=== PATIENT | female | born 1965 | race Caucasian/White ===

== ENCOUNTER → 2017-06-09 | Day surgery (SDC) | payer MEDICARE, BC ==
[~2017-06-09] MED LIST: ATROPINE 1 MG/10 ML SYRINGE IV; BUPIVACAINE 0.75%/DEXT (SPINAL) 2 ML INJ; CEFAZOLIN 1 GM INJ; CEFAZOLIN 2 GM/50 ML (PMX) 50 ML IVPB; DEXAMETHASONE 4 MG/ML 1 ML INJ; DIPHENHYDRAMINE 50 MG INJ IV; EPHEDrine SULFATE 50 MG/5 ML SYG; EPHEDrine SULFATE 50 MG/5 ML SYG IV; FENTAnyl 50 MCG/ML VIAL; FENTAnyl 50 MCG/ML VIAL IV; GELATIN SIZE 100 SPONGE; GLYCOPYRROLATE 0.4 MG INJ; HYDROmorphONE (0.2 MG/ML) 10ML SYG IV; LABETALOL HCL 20MG INJ IV; LIDOCAINE 2% (SDV) 5 ML INJ; MEPERIDINE 25 MG INJ IV; MIDAZOLAM 1 MG/ML 2 ML INJ; MIDAZOLAM 1 MG/ML 2 ML INJ IV; NEOSTIGMINE 3 MG/3 ML SYRINGE; ONDANSETRON 4 MG INJ; OXYCODONE/ACETAMINOPHEN (5/325) TAB PO; OXYTOCIN 10 UNIT INJ; PROPOFOL 100 ML; PROPOFOL 20 ML; ROCURONIUM 50 MG INJ; ROPIVACAINE 0.5 % 30 ML VIAL; SUCCINYLCHOLINE CHLORIDE 100 MG/5 ML SYG IV; THROMBIN 5000 UNIT VIAL; hydrALAzine 20 MG INJ IV; morphine (1 MG/ML) 10ML SYRINGE IV
[2017-06-09] MEDS: POLYMYXIN/BACITRACIN 1L IRRIG (08:34)
[2017-06-09] MEDS: MUPIROCIN 2% 15 GM CR (10:50)
[2017-06-09] MEDS: morphine (1 MG/ML) 10ML SYRINGE IV ×3 (11:24→11:45)
[2017-06-09] MEDS: OXYCODONE/ACETAMINOPHEN (5/325) TAB PO (11:56)
[2017-06-09] MEDS: ONDANSETRON 4 MG INJ IV (12:00)
== END | disposition home or self-care (01) ==
LOC: REC 05:54 → SDS 05:54
DX: M20.42 Other hammer toe(s) (acquired), left foot (principal); M20.12 Hallux valgus (acquired), left foot; D16.32 Benign neoplasm of short bones of left lower limb; I10 Essential (primary) hypertension
CPT/HCPCS: 27635; 73610; 73620; 73630-LT; 84703; 86850; 86900; 86901; 88304; 88311